=== PATIENT | male | born 1960 | race Caucasian/White ===

== ENCOUNTER → 2017-01-14 | Outpatient (CLI) | payer BC ==
--- NOTE | 2017-01-15 08:12 | RADIOLOGY REPORT (SQ) ---
EXAM DESCRIPTION: MRI RT LOWER JOINT WITHOUT COMPLETED DATE/TIME: 01/14/2017 4:22 pm REASON FOR STUDY: OTHER MENISCUC DERANGMENTS, OTHER MEDIAL MENISCUS, RIGHT KNEE M23.331 OTH MENISCU S DERANGEMENTS, OTHER MEDIAL MENISCUS, RI M25.561 PAIN IN RIGHT KNEE COMPARISON: None. TECHNIQUE: Rightknee images acquired and stored on PACS. Multiplanar images include fat sensitive s equences as T1, water sensitive sequences as FST2 or STIR, cartilage sensitive sequences as FSPD, and gradient echo sequences. LIMITATIONS: None. FINDINGS: JOINT AND BURSAE: Trace joint fluid. At least 1 calcified low signal osteochondral fragme nt in the posterior joint measuring close to 1 cm. BONE CORTEX AND MARROW: No alteration of signal to suggest marrow replacement. No worrisome bone lesi ons. No occult fracture. ACL: Intact. No degeneration or ganglion cyst. PCL: Intact. MCL: Intact. No periligamentous edema or fluid. LCL: Intact. No periligamentous edema or fluid. MEDIAL MENISCUS: No tears. No abnormal signal. LATERAL MENISCUS: No tears. No abnormal signal. MEDIAL COMPARTMENT: Irregular chondral loss in the medial femoral condyle. This may measure up to [place] 1 cm in maximal AP dimension. Anterior to this lesion, LATERAL COMPARTMENT: Cartilage preserved. No bone bruises or reactive marrow edema. No osteophytes. PATELLA: Normal location. Fibrillation of apical and lateral facet hyaline cartilage. No measurable full-thickness defect evident. Subchondral cysts in the medial aspect of the trochlea inferiorly. EXTENSOR MECHANISM: Quadriceps and patellar tendons intact. Mild scar/ edema in the suprapatellar fa t pad. SOFT TISSUES: Adjacent muscles and subcutaneous tissues normal. Normal flow void in popliteal artery and vein. OTHER: No other significant finding. IMPRESSION: 1. Loose body in the posterior joint. There is chondral disease with a focal lesion in the medial femoral condyle as above. There is also irregularity in the patellofemoral cartilage. 2. Cruciate collateral ligaments intact. No meniscus tear. 3. Scar/ edema in the suprapatellar fat. This can be a sign of impingement. TECHNICAL DOCUMENTATION: JOB ID: [id number]- All Rights Reserved
== END ==
LOC: RAD 15:23
PROVIDERS: ATTEND Orthopaedic Surgery Adult Reconstructive Orthopaedic Surgery
DX: M23.331 Other meniscus derangements, other medial meniscus, right knee (principal); M25.561 Pain in right knee

== ENCOUNTER → 2017-04-13 | Outpatient (CLI) | payer BC ==
--- NOTE | 2017-04-13 23:08 | EKG REPORT ---
SEVERITY:- NORMAL ECG - SINUS RHYTHM : Confirmed by: Remi Gambino 13-Apr-2017 23:08:01
== END ==
LOC: OD 15:08
PROVIDERS: ATTEND Orthopaedic Surgery
DX: Z01.89 Encounter for other specified special examinations (principal)
CPT/HCPCS: 93005; 93010